=== PATIENT | female | born 1995 | race Caucasian/White ===

== ENCOUNTER → 2024-03-23 16:17 | Outpatient (REF) | payer OTHER, SELFPAY ==
[2024-03-23 15:00] LABS: % Basophils 0.4 % (0-2); % Eosinophils 1.4 % (0-6); % Immature Granulocytes 0.1 % (0-0.5); % Lymphocytes 25.5 % (20.5-51.1); % Monocytes 6.8 % (1.7-9.3); % Neutrophils 65.8 % (42.2-75.2); Absolute Eosinophils 0.1 10^3/uL (0-0.7); Absolute Lymphocytes 1.8 10^3/uL (1.2-3.4); Absolute Monocytes 0.5 10^3/uL (0.1-0.6); Absolute Neutrophils 4.6 10^3/uL (1.4-6.5); Hematocrit 27.7 % (37.0-47.0); Hemoglobin 8.6 g/dL (12.0-16.0); Mean Corpuscular Hgb 25.5 pg (27.0-31.0); Mean Corpuscular Volume 82.2 fL (81.0-99.0); Mean Platelet Volume 10.9 fL (7.4-10.4); Platelet Count 282 10^3/uL (130-400); Red Blood Cell Count 3.37 10^6/uL (4.20-5.40); Red Cell Dist. Width 14.9 % (11.5-14.5)
== END ==
LOC: OIDL 16:17
PROVIDERS: ATTENDING PHYSICIAN Internal Medicine Hematology & Oncology
DX: D50.9 Iron deficiency anemia, unspecified (principal)
CPT/HCPCS: 85025

== ENCOUNTER → 2024-03-27 15:28 | Outpatient (REF) | payer OTHER, SELFPAY ==
[2024-03-27 10:25] LABS: % Basophils 0.6 % (0-2); % Eosinophils 1.1 % (0-6); % Immature Granulocytes 0.4 % (0-0.5); % Lymphocytes 35.8 % (20.5-51.1); % Monocytes 7.8 % (1.7-9.3); % Neutrophils 54.3 % (42.2-75.2); Absolute Eosinophils 0.1 10^3/uL (0-0.7); Absolute Lymphocytes 1.9 10^3/uL (1.2-3.4); Absolute Monocytes 0.4 10^3/uL (0.1-0.6); Absolute Neutrophils 2.9 10^3/uL (1.4-6.5); Hematocrit 28.3 % (37.0-47.0); Hemoglobin 8.3 g/dL (12.0-16.0); Mean Corp Hgb Conc. 29.3 g/dL (33.0-37.0); Mean Corpuscular Hgb 24.9 pg (27.0-31.0); Mean Platelet Volume 11.5 fL (7.4-10.4); Nucleated Red Blood Cells % 0 %; Platelet Count 259 10^3/uL (130-400); Red Blood Cell Count 3.33 10^6/uL (4.20-5.40); Red Cell Dist. Width 15.5 % (11.5-14.5); White Blood Cell Count 5.3 10^3/uL (4.8-10.8)
== END ==
LOC: OIDL 15:28
PROVIDERS: ATTENDING PHYSICIAN Internal Medicine Hematology & Oncology
DX: D50.9 Iron deficiency anemia, unspecified (principal)
CPT/HCPCS: 85025

== ENCOUNTER → 2024-04-05 15:41 | Outpatient (REF) | payer OTHER, SELFPAY ==
[2024-04-05 14:24] LABS: % Basophils 0.4 % (0-2); % Eosinophils 0.4 % (0-6); % Immature Granulocytes 0.1 % (0-0.5); % Lymphocytes 22.3 % (20.5-51.1); % Monocytes 6.3 % (1.7-9.3); % Neutrophils 70.5 % (42.2-75.2); Absolute Lymphocytes 1.6 10^3/uL (1.2-3.4); Absolute Monocytes 0.5 10^3/uL (0.1-0.6); Absolute Neutrophils 5.1 10^3/uL (1.4-6.5); Hematocrit 31.3 % (37.0-47.0); Hemoglobin 9.8 g/dL (12.0-16.0); Mean Corp Hgb Conc. 31.3 g/dL (33.0-37.0); Mean Corpuscular Hgb 26.1 pg (27.0-31.0); Mean Corpuscular Volume 83.5 fL (81.0-99.0); Platelet Count 255 10^3/uL (130-400); Red Blood Cell Count 3.75 10^6/uL (4.20-5.40); White Blood Cell Count 7.3 10^3/uL (4.8-10.8)
== END ==
LOC: OIDL 15:41
PROVIDERS: ATTENDING PHYSICIAN Internal Medicine Hematology & Oncology
DX: D50.9 Iron deficiency anemia, unspecified (principal)
CPT/HCPCS: 85025

== ENCOUNTER → 2024-04-10 10:48 | Outpatient (REF) | payer OTHER, SELFPAY ==
[2024-04-10 11:01] LABS: % Basophils 0.5 % (0-2); % Eosinophils 1.1 % (0-6); % Immature Granulocytes 0.2 % (0-0.5); % Lymphocytes 32.7 % (20.5-51.1); % Monocytes 6.4 % (1.7-9.3); % Neutrophils 59.1 % (42.2-75.2); Absolute Eosinophils 0.1 10^3/uL (0-0.7); Absolute Lymphocytes 1.8 10^3/uL (1.2-3.4); Absolute Monocytes 0.4 10^3/uL (0.1-0.6); Absolute Neutrophils 3.3 10^3/uL (1.4-6.5); Hematocrit 31.5 % (37.0-47.0); Hemoglobin 9.6 g/dL (12.0-16.0); Mean Corp Hgb Conc. 30.5 g/dL (33.0-37.0); Mean Corpuscular Hgb 25.8 pg (27.0-31.0); Mean Corpuscular Volume 84.7 fL (81.0-99.0); Mean Platelet Volume 11.2 fL (7.4-10.4); Nucleated Red Blood Cells % 0 %; Platelet Count 274 10^3/uL (130-400); Red Blood Cell Count 3.72 10^6/uL (4.20-5.40); Red Cell Dist. Width 17.6 % (11.5-14.5); White Blood Cell Count 5.5 10^3/uL (4.8-10.8)
== END ==
LOC: OIDL 10:48
PROVIDERS: ATTENDING PHYSICIAN Internal Medicine Hematology & Oncology
DX: D50.9 Iron deficiency anemia, unspecified (principal); E53.9 Vitamin B deficiency, unspecified
CPT/HCPCS: 85025

== ENCOUNTER → 2024-04-17 15:45 | Outpatient (REF) | payer OTHER, SELFPAY ==
[2024-04-17 12:40] LABS: % Basophils 0.6 % (0-2); % Eosinophils 0.8 % (0-6); % Immature Granulocytes 0.2 % (0-0.5); % Lymphocytes 32.6 % (20.5-51.1); % Monocytes 6.6 % (1.7-9.3); % Neutrophils 59.2 % (42.2-75.2); Absolute Lymphocytes 1.7 10^3/uL (1.2-3.4); Absolute Monocytes 0.4 10^3/uL (0.1-0.6); Absolute Neutrophils 3.1 10^3/uL (1.4-6.5); Hematocrit 34.2 % (37.0-47.0); Hemoglobin 10.9 g/dL (12.0-16.0); Mean Corp Hgb Conc. 31.9 g/dL (33.0-37.0); Mean Corpuscular Hgb 27.7 pg (27.0-31.0); Mean Corpuscular Volume 86.8 fL (81.0-99.0); Mean Platelet Volume 11.9 fL (7.4-10.4); Nucleated Red Blood Cells % 0 %; Platelet Count 272 10^3/uL (130-400); Red Blood Cell Count 3.94 10^6/uL (4.20-5.40); Red Cell Dist. Width 18.2 % (11.5-14.5); White Blood Cell Count 5.3 10^3/uL (4.8-10.8)
== END ==
LOC: OIDL 15:45
PROVIDERS: ATTENDING PHYSICIAN Internal Medicine Hematology & Oncology
DX: D50.9 Iron deficiency anemia, unspecified (principal)
CPT/HCPCS: 85025

== ENCOUNTER → 2024-07-10 10:48 | Outpatient (REF) | payer OTHER, SELFPAY | LOC: PNTC 10:48 | PROVIDERS: ATTENDING PHYSICIAN Obstetrics & Gynecology | DX: O99.210 Obesity complicating pregnancy, unspecified trimester (principal) | CPT/HCPCS: 76805 ==

== ENCOUNTER → 2024-08-03 09:58 | Outpatient (REF) | payer OTHER, SELFPAY | LOC: PNTC 09:58 | PROVIDERS: ATTENDING PHYSICIAN Obstetrics & Gynecology | DX: O99.210 Obesity complicating pregnancy, unspecified trimester (principal) | CPT/HCPCS: 76811 ==

== ENCOUNTER → 2024-08-30 10:56 | Outpatient (REF) | payer OTHER, SELFPAY | LOC: PNTC 10:56 | PROVIDERS: ATTENDING PHYSICIAN Obstetrics & Gynecology | DX: O99.210 Obesity complicating pregnancy, unspecified trimester (principal); O09.529 Supervision of elderly multigravida, unspecified trimester | CPT/HCPCS: 76816 ==

== ENCOUNTER → 2024-09-28 10:02 | Outpatient (REF) | payer OTHER, SELFPAY | LOC: PNTC 10:02 | PROVIDERS: ATTENDING PHYSICIAN Obstetrics & Gynecology | DX: O99.210 Obesity complicating pregnancy, unspecified trimester (principal); O09.529 Supervision of elderly multigravida, unspecified trimester | CPT/HCPCS: 76816 ==

== ENCOUNTER → 2024-10-12 09:59 | Outpatient (REF) | payer OTHER, SELFPAY | LOC: PNTC 09:59 | PROVIDERS: ATTENDING PHYSICIAN Obstetrics & Gynecology | DX: Z29.13 Encounter for prophylactic Rho(D) immune globulin (principal) | CPT/HCPCS: 36415; 86850; 86900; 86901; 96372; J2790 ==

== ENCOUNTER → 2024-10-26 09:13 | Outpatient (REF) | payer OTHER, SELFPAY | LOC: PNTC 09:13 | PROVIDERS: ATTENDING PHYSICIAN Obstetrics & Gynecology | DX: O99.210 Obesity complicating pregnancy, unspecified trimester (principal); O09.529 Supervision of elderly multigravida, unspecified trimester | CPT/HCPCS: 59025; 76816 ==

== ENCOUNTER → 2024-11-01 10:01 | Outpatient (REF) | payer OTHER, SELFPAY | LOC: PNTC 10:01 | PROVIDERS: ATTENDING PHYSICIAN Obstetrics & Gynecology | DX: O99.210 Obesity complicating pregnancy, unspecified trimester (principal) | CPT/HCPCS: 59025; 76815 ==

== ENCOUNTER 2024-11-07 17:04 | Observation (INO) | payer OTHER, SELFPAY ==
[2024-11-07 17:12] VITALS: BP 127/77; BMI 48.5
[2024-11-07 18:02] LABS: % Basophils 0.2 % (0-2); % Eosinophils 0.5 % (0-6); % Immature Granulocytes 0.7 % (0-0.5); % Lymphocytes 26.1 % (20.5-51.1); % Monocytes 7.7 % (1.7-9.3); % Neutrophils 64.8 % (42.2-75.2); Absolute Immature Granulocytes 0.1 10^3/uL (0-0.05); Absolute Lymphocytes 2.1 10^3/uL (1.2-3.4); Absolute Monocytes 0.6 10^3/uL (0.1-0.6); Absolute Neutrophils 5.3 10^3/uL (1.4-6.5); Hematocrit 31.9 % (37.0-47.0); Hemoglobin 10.6 g/dL (12.0-16.0); Mean Corp Hgb Conc. 33.2 g/dL (33.0-37.0); Mean Corpuscular Hgb 31.4 pg (27.0-31.0); Mean Corpuscular Volume 94.4 fL (81.0-99.0); Mean Platelet Volume 11.1 fL (7.4-10.4); Nucleated Red Blood Cells % 0 %; Platelet Count 203 10^3/uL (130-400); Red Blood Cell Count 3.38 10^6/uL (4.20-5.40); Red Cell Dist. Width 14.2 % (11.5-14.5); White Blood Cell Count 8.2 10^3/uL (4.8-10.8)
[2024-11-07 18:15] LABS: ALT (SGPT) < 10 U/L (0-35); AST (SGOT) 13 U/L (14-36); Albumin 3.6 g/dl (3.5-5.0); Alkaline Phosphatase 132 U/L (38-126); Blood Urea Nitrogen 4 mg/dl (7-17); Calcium 8.5 mg/dl (8.4-10.2); Carbon Dioxide 24 mmol/L (22-30); Chloride 102 mmol/L (98-107); Estimated Creatinine Clearance > 125 ml/min; Glucose 101 mg/dl (70-99); Potassium 3.9 mmol/L (3.5-5.1); Sodium 134 mmol/L (135-145); Total Bilirubin 0.7 mg/dl (0.2-1.3); Total Protein 6.2 g/dl (6.3-8.2); eGFR > 60.00
[2024-11-07 18:16] LABS: Uric Acid 4.3 mg/dl (2.5-6.2)
[2024-11-07 18:26] LABS: Urine Albumin 1+ (Neg - Trace); Urine Bilirubin Negative (Negative); Urine Character Slightly Cloudy (Clear); Urine Color Yellow; Urine Glucose Negative (Negative); Urine Ketone Negative (Negative); Urine Leukocyte 1+ (Negative); Urine Nitrite Negative (Negative); Urine Occult Blood Negative (Negative); Urine Urobilinogen 1+ (Neg - 1+)
[2024-11-07 18:43] LABS: Urine Bacteria Few (Negative); Urine Red Blood Cell 0-2 /HPF (0-2); Urine Squamous Cell >30 /LPF (Few); Urine White Cell 0-2 /HPF (0-5)
[2024-11-07 18:53] LABS: Urine Protein < 5 mg/dl
[2024-11-07] MEDS: TYLENOL 650 MG PO (19:22)
== END 2024-11-07 20:33 | disposition home or self-care (01) ==
LOC: LDRP 17:04
PROVIDERS: ADMITTING PHYSICIAN Obstetrics & Gynecology
DX: O26.893 Other specified pregnancy related conditions, third trimester (principal); Z3A.33 33 weeks gestation of pregnancy; R51.9 Headache, unspecified; R19.7 Diarrhea, unspecified; Z88.0 Allergy status to penicillin
CPT/HCPCS: 80048; 80053; 81003; 81015; 82570; 84156; 84550; 85025; 86850; 86870; 86900; 86901; G0378

== ENCOUNTER 2024-11-08 11:00 | Observation (INO) | payer OTHER, SELFPAY ==
[2024-11-08 11:21] LABS: % Basophils 0.3 % (0-2); % Eosinophils 0.4 % (0-6); % Immature Granulocytes 0.4 % (0-0.5); % Lymphocytes 25.1 % (20.5-51.1); % Monocytes 5.8 % (1.7-9.3); Absolute Lymphocytes 1.8 10^3/uL (1.2-3.4); Absolute Monocytes 0.4 10^3/uL (0.1-0.6); Absolute Neutrophils 4.9 10^3/uL (1.4-6.5); Hematocrit 30.2 % (37.0-47.0); Hemoglobin 10.3 g/dL (12.0-16.0); Mean Corp Hgb Conc. 34.1 g/dL (33.0-37.0); Mean Corpuscular Hgb 32.2 pg (27.0-31.0); Mean Corpuscular Volume 94.4 fL (81.0-99.0); Mean Platelet Volume 11.2 fL (7.4-10.4); Nucleated Red Blood Cells % 0 %; Platelet Count 183 10^3/uL (130-400); Red Cell Dist. Width 14.2 % (11.5-14.5); White Blood Cell Count 7.2 10^3/uL (4.8-10.8)
[2024-11-08 11:27] VITALS: BP 150/59; BMI 48.0
[2024-11-08 11:54] LABS: ALT (SGPT) 11 U/L (0-35); AST (SGOT) 13 U/L (14-36); Albumin 3.4 g/dl (3.5-5.0); Alkaline Phosphatase 132 U/L (38-126); Blood Urea Nitrogen 4 mg/dl (7-17); Calcium 8.7 mg/dl (8.4-10.2); Carbon Dioxide 21 mmol/L (22-30); Chloride 104 mmol/L (98-107); Estimated Creatinine Clearance > 125 ml/min; Glucose 130 mg/dl (70-99); Potassium 3.5 mmol/L (3.5-5.1); Sodium 134 mmol/L (135-145); Total Bilirubin 0.7 mg/dl (0.2-1.3); eGFR > 60.00
[2024-11-08 12:30] LABS: Urine Protein < 5 mg/dl
[2024-11-08] MEDS: TYLENOL 1000 MG PO (13:13)
[2024-11-08] MEDS: BENADRYL 25 MG IV (14:55)
[2024-11-08] MEDS: LR 1000 IV (14:55)
[2024-11-08] MEDS: REGLAN 10 MG IV (14:57)
== END 2024-11-08 17:36 | disposition home or self-care (01) ==
LOC: LDRP 11:00
PROVIDERS: ADMITTING PHYSICIAN Student in an Organized Health Care Education/Training Program; ATTENDING PHYSICIAN Obstetrics & Gynecology
DX: O13.3 Gestational [pregnancy-induced] hypertension without significant proteinuria, third trimester (principal); R51.9 Headache, unspecified; Z3A.34 34 weeks gestation of pregnancy; O99.013 Anemia complicating pregnancy, third trimester; D64.9 Anemia, unspecified; O99.213 Obesity complicating pregnancy, third trimester; Z88.0 Allergy status to penicillin
CPT/HCPCS: 59025; 76815; 80053; 82570; 84156; 85025; G0378

== ENCOUNTER 2024-11-14 11:44 | Observation (INO) | payer OTHER, SELFPAY ==
[2024-11-14 12:26] LABS: % Basophils 0.3 % (0-2); % Eosinophils 0.4 % (0-6); % Immature Granulocytes 0.6 % (0-0.5); % Lymphocytes 23.9 % (20.5-51.1); % Monocytes 6.7 % (1.7-9.3); % Neutrophils 68.1 % (42.2-75.2); Absolute Lymphocytes 1.7 10^3/uL (1.2-3.4); Absolute Monocytes 0.5 10^3/uL (0.1-0.6); Absolute Neutrophils 4.7 10^3/uL (1.4-6.5); Hematocrit 30.1 % (37.0-47.0); Mean Corp Hgb Conc. 33.2 g/dL (33.0-37.0); Mean Corpuscular Hgb 31.4 pg (27.0-31.0); Mean Corpuscular Volume 94.7 fL (81.0-99.0); Mean Platelet Volume 11.2 fL (7.4-10.4); Nucleated Red Blood Cells % 0 %; Platelet Count 192 10^3/uL (130-400); Red Blood Cell Count 3.18 10^6/uL (4.20-5.40); White Blood Cell Count 6.9 10^3/uL (4.8-10.8)
[2024-11-14 12:32] VITALS: BP 127/72; BMI 48.0
[2024-11-14 12:47] LABS: ALT (SGPT) < 10 U/L (0-35); AST (SGOT) 13 U/L (14-36); Albumin 3.1 g/dl (3.5-5.0); Alkaline Phosphatase 122 U/L (38-126); Blood Urea Nitrogen 5 mg/dl (7-17); Calcium 8.5 mg/dl (8.4-10.2); Carbon Dioxide 22 mmol/L (22-30); Chloride 105 mmol/L (98-107); Estimated Creatinine Clearance > 125 ml/min; Glucose 125 mg/dl (70-99); Potassium 3.4 mmol/L (3.5-5.1); Sodium 134 mmol/L (135-145); Total Bilirubin 0.5 mg/dl (0.2-1.3); Total Protein 5.8 g/dl (6.3-8.2); eGFR > 60.00
[2024-11-14 12:59] LABS: Urine Albumin Negative (Neg - Trace); Urine Bilirubin Negative (Negative); Urine Character Clear (Clear); Urine Color Yellow; Urine Glucose Negative (Negative); Urine Ketone Negative (Negative); Urine Leukocyte Negative (Negative); Urine Nitrite Negative (Negative); Urine Occult Blood Negative (Negative); Urine Urobilinogen Negative (Neg - 1+); Urine pH 6.5 (5.0-9.0)
[2024-11-14] MEDS: TYLENOL 1000 MG PO (13:57)
[2024-11-14 14:29] LABS: Protein/creatinine Ratio 0.2; Urine Protein 9 mg/dl
[2024-11-14] MEDS: LR 1000 IV (16:15)
[2024-11-14] MEDS: BENADRYL 25 MG IV (16:17)
[2024-11-14] MEDS: REGLAN 10 MG IV (16:18)
== END 2024-11-14 20:15 | disposition home or self-care (01) ==
LOC: LDRP 11:44
PROVIDERS: ADMITTING PHYSICIAN Student in an Organized Health Care Education/Training Program
DX: O13.3 Gestational [pregnancy-induced] hypertension without significant proteinuria, third trimester (principal); O99.213 Obesity complicating pregnancy, third trimester; O99.013 Anemia complicating pregnancy, third trimester; Z3A.34 34 weeks gestation of pregnancy; O26.893 Other specified pregnancy related conditions, third trimester; Z67.11 Type A blood, Rh negative
CPT/HCPCS: 76815; 80053; 81003; 82570; 84156; 85025; G0378

== ENCOUNTER 2024-11-20 11:27 | Observation (INO) | payer OTHER, SELFPAY ==
[2024-11-20 11:54] LABS: % Basophils 0.3 % (0-2); % Eosinophils 0.4 % (0-6); % Immature Granulocytes 0.4 % (0-0.5); % Lymphocytes 23.5 % (20.5-51.1); % Monocytes 6.7 % (1.7-9.3); % Neutrophils 68.7 % (42.2-75.2); Absolute Lymphocytes 1.7 10^3/uL (1.2-3.4); Absolute Monocytes 0.5 10^3/uL (0.1-0.6); Absolute Neutrophils 4.9 10^3/uL (1.4-6.5); Hemoglobin 10.5 g/dL (12.0-16.0); Mean Corp Hgb Conc. 33.9 g/dL (33.0-37.0); Mean Corpuscular Hgb 32.2 pg (27.0-31.0); Mean Corpuscular Volume 95.1 fL (81.0-99.0); Mean Platelet Volume 11.3 fL (7.4-10.4); Nucleated Red Blood Cells % 0 %; Platelet Count 196 10^3/uL (130-400); Red Blood Cell Count 3.26 10^6/uL (4.20-5.40); Red Cell Dist. Width 14.1 % (11.5-14.5); White Blood Cell Count 7.2 10^3/uL (4.8-10.8)
[2024-11-20 11:55] VITALS: BP 138/83; BMI 48.0
[2024-11-20 12:10] LABS: ALT (SGPT) < 10 U/L (0-35); AST (SGOT) 12 U/L (14-36); Albumin 3.1 g/dl (3.5-5.0); Alkaline Phosphatase 142 U/L (38-126); Blood Urea Nitrogen 5 mg/dl (7-17); Calcium 8.6 mg/dl (8.4-10.2); Carbon Dioxide 25 mmol/L (22-30); Chloride 104 mmol/L (98-107); Estimated Creatinine Clearance > 125 ml/min; Glucose 106 mg/dl (70-99); Potassium 3.8 mmol/L (3.5-5.1); Sodium 134 mmol/L (135-145); Total Bilirubin 0.6 mg/dl (0.2-1.3); Total Protein 5.8 g/dl (6.3-8.2); eGFR > 60.00
[2024-11-20 13:08] LABS: Urine Protein < 5 mg/dl
[2024-11-20] MEDS: TYLENOL #3 1 TABLET PO (13:57)
== END 2024-11-20 16:10 | disposition home or self-care (01) ==
LOC: PNTC-IN 11:27
PROVIDERS: ADMITTING PHYSICIAN Obstetrics & Gynecology
DX: O26.893 Other specified pregnancy related conditions, third trimester (principal); R51.9 Headache, unspecified; Z3A.35 35 weeks gestation of pregnancy; Z88.0 Allergy status to penicillin
CPT/HCPCS: 80053; 82570; 84156; 85025; G0378

== ENCOUNTER → 2024-11-22 09:33 | Outpatient (REF) | payer OTHER, SELFPAY | LOC: PNTC 09:33 | PROVIDERS: ATTENDING PHYSICIAN Obstetrics & Gynecology | DX: O99.210 Obesity complicating pregnancy, unspecified trimester (principal) | CPT/HCPCS: 59025; 76816 ==

== ENCOUNTER 2024-11-29 05:19 | Inpatient (IN) | payer OTHER, SELFPAY ==
[2024-11-29 05:26] VITALS: BMI 48.0
[2024-11-29 06:00] VITALS: BP 111/75
[2024-11-29] MEDS: LR 1000 IV ×3 (06:43→22:22)
[2024-11-29 06:48] LABS: Hematocrit 30.5 % (37.0-47.0); Hemoglobin 10.2 g/dL (12.0-16.0); Mean Corp Hgb Conc. 33.4 g/dL (33.0-37.0); Mean Corpuscular Hgb 31.7 pg (27.0-31.0); Mean Corpuscular Volume 94.7 fL (81.0-99.0); Platelet Count 169 10^3/uL (130-400); Red Blood Cell Count 3.22 10^6/uL (4.20-5.40); Red Cell Dist. Width 14.1 % (11.5-14.5); White Blood Cell Count 7.7 10^3/uL (4.8-10.8)
[2024-11-29 07:12] LABS: Urine Albumin 1+ (Neg - Trace); Urine Bilirubin Negative (Negative); Urine Character Clear (Clear); Urine Color Yellow; Urine Glucose Negative (Negative); Urine Ketone Negative (Negative); Urine Leukocyte 1+ (Negative); Urine Nitrite Negative (Negative); Urine Occult Blood Negative (Negative); Urine Specific Gravity 1.025 (<1.030); Urine Urobilinogen Negative (Neg - 1+)
[2024-11-29 07:19] LABS: ALT (SGPT) < 10 U/L (0-35); AST (SGOT) 12 U/L (14-36); Albumin 3.1 g/dl (3.5-5.0); Alkaline Phosphatase 142 U/L (38-126); Blood Urea Nitrogen 4 mg/dl (7-17); Calcium 8.7 mg/dl (8.4-10.2); Carbon Dioxide 21 mmol/L (22-30); Chloride 106 mmol/L (98-107); Estimated Creatinine Clearance > 125 ml/min; Glucose 88 mg/dl (70-99); Potassium 3.6 mmol/L (3.5-5.1); Sodium 135 mmol/L (135-145); Total Bilirubin 0.6 mg/dl (0.2-1.3); Total Protein 5.8 g/dl (6.3-8.2); eGFR > 60.00
[2024-11-29] MEDS: TYLENOL 1000 MG PO ×2 (07:36→22:50)
[2024-11-29] MEDS: BICITRA 30 ML PO (07:36)
[2024-11-29] MEDS: BRETHINE 250 MCG SC (07:44)
[2024-11-29 08:27] LABS: Urine Squamous Cell >30 /LPF (Few)
[2024-11-29 08:31] LABS: Urine Bacteria Moderate (Negative); Urine Red Blood Cell None Seen /HPF (0-2); Urine Yeast Few (Negative)
[2024-11-29 10:02] LABS: Urine Protein 6 mg/dl
[2024-11-29] MEDS: CYTOTEC 50 MICROGRAM PO ×2 (10:43→15:13)
[2024-11-29] MEDS: PITOCIN 30 UNITS/NSS 500 ML IV (22:43)
[2024-11-30] MEDS: FENTANYL/BUPIVACAINE 100 EPIDURAL (01:17)
[2024-11-30] MEDS: ANCEF 15 MG IV (03:38)
[2024-11-30] MEDS: BICITRA 30 ML PO (03:39)
[2024-11-30 04:32] LABS: Cord ABG Comment CORD BLOOD
[2024-11-30 04:32] LABS: Cord ABG Comment CORD BLOOD
[2024-11-30 04:34] LABS: B.E. Cord ABG -0.3 mMOL/L; HCO3 Cord ABG 27.2 mmol/L; O2 Saturation % Cord ABG 36.4 %; PCO2 Cord ABG 54 mmHg; PO2 Cord ABG 17 mmHg; pH Cord ABG 7.31
[2024-11-30 04:36] LABS: B.E. Cord ABG -1.3 mMOL/L; HCO3 Cord ABG 27.1 mmol/L; O2 Saturation % Cord ABG 22.3 %; PCO2 Cord ABG 59 mmHg; PO2 Cord ABG 13 mmHg; pH Cord ABG 7.27
[2024-11-30] MEDS: MORPHINE SULFATE 2 MG IV (05:41)
[2024-11-30] MEDS: TORADOL 15 MG IV ×3 (11:08→23:19)
[2024-11-30] MEDS: TYLENOL 650 MG PO (20:18)
[2024-12-01] MEDS: TORADOL 15 MG IV (05:07)
[2024-12-01 05:18] LABS: Hematocrit 23.5 % (37.0-47.0); Hemoglobin 7.8 g/dL (12.0-16.0); Mean Corp Hgb Conc. 33.2 g/dL (33.0-37.0); Mean Corpuscular Hgb 31.8 pg (27.0-31.0); Mean Corpuscular Volume 95.9 fL (81.0-99.0); Platelet Count 155 10^3/uL (130-400); Red Blood Cell Count 2.45 10^6/uL (4.20-5.40); Red Cell Dist. Width 14.3 % (11.5-14.5)
--- NOTE | 2024-12-01 07:32 | W.PN.ANS.POP ---
Anesthesia Post Operative
- Anesthesia Post Op Note
Vital Signs Stable-See Nursing Note: Yes
Airway Patent: Yes
Adequate Pain Control: Yes
Change in Mental Status: No
Current Postoperative Nausea & Vomiting: No
Anesthesia Complications: No
General Anesthetic Recall: No
Unplanned Admission: No
Post Op Hydration Adequate: Yes
[2024-12-01] MEDS: PRENATAL PLUS 1 TABLET PO (07:44)
[2024-12-01] MEDS: TYLENOL 650 MG PO ×3 (08:00→20:13)
[2024-12-01 12:55] LABS: Syphilis/T. pallidum Ab Reflex Negative (Negative)
[2024-12-01] MEDS: MOTRIN 600 MG PO ×2 (13:10→20:12)
[2024-12-01] MEDS: TORADOL IV (13:42)
[2024-12-02] MEDS: MOTRIN 600 MG PO ×2 (04:43→11:23)
[2024-12-02] MEDS: TYLENOL 650 MG PO ×2 (04:44→11:22)
[2024-12-02] MEDS: PRENATAL PLUS 1 TABLET PO (07:32)
[2024-12-02] MEDS: PRENATAL PLUS PO (07:48)
[2024-12-02] MEDS: FEOSOL 325 MG PO (09:08)
[2024-12-02] MEDS: SENOKOT-S 1 TABLET PO (09:08)
[2024-12-02] MEDS: M-M-R II 0.5 ML SC (16:24)
--- NOTE | 2024-12-02 16:48 | W.DS.TRANS ---
DC Summary - Civil Engineer'S Aide
-
Discharge Instructions:
Discharge Diagnosis/Procedures Gestational HTN, 37w1d delivered;
External cephalic version, cervical ripening,
induction of labor with pitocin, nonreassuring
FHT, multiparity -requesting sterilization,
Primary LTCS right salpingectomy, anemia
Diet Regular
Activity No strenuous activity
Driving Restrictions No driving for 2 weeks
Bathing Restrictions OK to Shower
Instructions:
Stand-Alone Forms: LDRP Delivery
LDRP Hypertensive Disorders
Changes to Home Medications: No
Discharge Medications:
DC Medications w/original date entered in [facility]
vits 96-ferrous fumarate 27 mg iron-folic acid 800 mcg tablet 1 ea PO DAILY Supplement 05/27/21
acetaminophen 325 mg tablet 650 mg (2 x 325 mg) PO Q4HPRN PRN mild pain #0 tabs 11/30/24
ibuprofen 600 mg tablet 600 mg PO Q6HPRN PRN cramps #30 tabs 11/30/24
ferrous sulfate 325 mg (65 mg iron) tablet (FeroSul) 325 mg PO DAILY #0 tabs 12/02/24
Home Medication Changes
Pending Results: Yes
Additional Pending Results:
pathology on fallopian tube and placenta
Total time spent discharging patient (in min): 20
== END 2024-12-02 17:03 | disposition home or self-care (01) | DRG 785 ==
LOC: LDRP 05:19
PROVIDERS: Obstetrics & Gynecology; ADMITTING PHYSICIAN Obstetrics & Gynecology
PROC: 3E0P7VZ Introduction of Hormone into Female Reproductive, Via Natural or Artificial Opening (ICD-10-PCS; 2024-11-29)
PROC: 10S0XZZ Reposition Products of Conception, External Approach (ICD-10-PCS; 2024-11-29)
PROC: 3E0234Z Introduction of Serum, Toxoid and Vaccine into Muscle, Percutaneous Approach (ICD-10-PCS; 2024-11-30)
PROC: 3E033VJ Introduction of Other Hormone into Peripheral Vein, Percutaneous Approach (ICD-10-PCS; 2024-11-30)
PROC: 0UT70ZZ Resection of Bilateral Fallopian Tubes, Open Approach (ICD-10-PCS; 2024-11-30)
PROC: 10D00Z1 Extraction of Products of Conception, Low, Open Approach (ICD-10-PCS; 2024-11-30)
DX: O32.1XX0 Maternal care for breech presentation, not applicable or unspecified (principal); O13.4 Gestational [pregnancy-induced] hypertension without significant proteinuria, complicating childbirth; Z3A.37 37 weeks gestation of pregnancy; Z37.0 Single live birth; O76 Abnormality in fetal heart rate and rhythm complicating labor and delivery; O69.0XX0 Labor and delivery complicated by prolapse of cord, not applicable or unspecified; Z30.2 Encounter for sterilization; E66.813 Obesity, class 3; O99.214 Obesity complicating childbirth; D50.0 Iron deficiency anemia secondary to blood loss (chronic); O99.02 Anemia complicating childbirth; Z23 Encounter for immunization
CPT/HCPCS: 88302; 88307; 58605; 80053; 81003; 81015; 82570; 82803; 84156; 85027; 86780; 86850; 86900; 86901; 90707

== ENCOUNTER 2024-12-21 12:33 | Emergency (ER) | payer OTHER, SELFPAY ==
[2024-12-21 12:33] VITALS: BMI 45.7
[2024-12-21 12:38] VITALS: BP 154/88
[2024-12-21 13:21] LABS: % Basophils 0.3 % (0-2); % Eosinophils 1.3 % (0-6); % Immature Granulocytes 0.3 % (0-0.5); % Lymphocytes 30.8 % (20.5-51.1); % Monocytes 7.1 % (1.7-9.3); % Neutrophils 60.2 % (42.2-75.2); Absolute Eosinophils 0.1 10^3/uL (0-0.7); Absolute Lymphocytes 2.1 10^3/uL (1.2-3.4); Absolute Monocytes 0.5 10^3/uL (0.1-0.6); Absolute Neutrophils 4.1 10^3/uL (1.4-6.5); Hematocrit 30.7 % (37.0-47.0); Hemoglobin 9.8 g/dL (12.0-16.0); Mean Corp Hgb Conc. 31.9 g/dL (33.0-37.0); Mean Corpuscular Hgb 29.4 pg (27.0-31.0); Mean Corpuscular Volume 92.2 fL (81.0-99.0); Mean Platelet Volume 10.4 fL (7.4-10.4); Nucleated Red Blood Cells % 0 %; Platelet Count 283 10^3/uL (130-400); Red Blood Cell Count 3.33 10^6/uL (4.20-5.40); Red Cell Dist. Width 13.4 % (11.5-14.5); White Blood Cell Count 6.9 10^3/uL (4.8-10.8)
[2024-12-21 13:37] LABS: ALT (SGPT) 19 U/L (0-35); AST (SGOT) 19 U/L (14-36); Alkaline Phosphatase 102 U/L (38-126); Blood Urea Nitrogen 8 mg/dl (7-17); Carbon Dioxide 28 mmol/L (22-30); Chloride 103 mmol/L (98-107); Estimated Creatinine Clearance > 125 ml/min; Glucose 99 mg/dl (70-99); Potassium 3.8 mmol/L (3.5-5.1); Sodium 137 mmol/L (135-145); Total Bilirubin 0.7 mg/dl (0.2-1.3); Total Protein 6.4 g/dl (6.3-8.2); eGFR > 60.00
[2024-12-21 13:59] LABS: Albumin 3.6 g/dl (3.5-5.0)
--- NOTE | 2024-12-21 14:09 | ED.GENMED ---
History of Present Illness
General
Chief Complaint: Skin Problem
Source: patient
Exam Limitations: none
Time Seen by Provider: 12/21/24 12:46
Nursing documentation reviewed up to this point in time: agreed with
History of Present Illness
History of Present Illness:
Patient is a 29-year-old currently 3 weeks postop from presenting with expaning redness and warmth surrounding incision. Patient sent by OBGYN office with concern of infected incisional site.
Patient was initially treated with topical clotrimazole after 2-week postop appointment for concern of possible fungal infection. She had no improvement in symptoms after clotrimazole, if not mild worsening. She notes expanding redness and warmth
around incision with mild tenderness. Patient states she did feel somewhat chilly yesterday although denies any known fevers. Patient denies any significant abdominal pain, nausea, vomiting. There has not been any drainage from surgical site.
Patient is not breast-feeding.
Patient does report childhood allergy to penicillin although he thinks it was just a GI reaction
Past History
Past History
ED Past Medical History: None and Other
ED Past Surgical History: None, Cholecystectomy and Gynecological
Social History
Tobacco: Non-smoker
Alcohol: None
Drug: None
Personal: Single
Living: with family
Employment: Employed
Family History
Family History: Other
Review of Systems
Review of Systems
Allergies reviewed?: Yes
All Other Systems: ROS reviewed and negative except as documented in HPI and ROS
Phy Exam
Physical Exam
Physical Exam:
Vitals: Hypertensive, otherwise vital signs stable. Afebrile
General: Patient is well appearing, no acute distress. Nontoxic appearing
Skin: Healing low abdominal incision C/D/I with surrounding erythema and warmth with mild tenderness. No red streaking or purulent drainage.
Head: Normocephalic, atraumatic
Eyes: Sclera nonicteric. EOMs intact. No nystagmus.
Throat: Protecting airway
Neck: Normal ROM, no cervical spine tenderness, no meningismus
Cardiac: Regular rate and rhythm, no murmurs.
Pulm: Normal respiratory effort, no wheezes, rales, rhonchi heard on exam.
Abdomen: Abdomen soft and nontender. No rebound tenderness or guarding. Cellulitis of incision as above.
Extremities: No evidence of cyanosis or edema. Palpable DP pulses bilateral
Neuro: AAOx3. Grossly intact.
Psychiatric: Normal affect.
Course
Orders/Labs/Results
Orders:
Orders
12/21/24 13:04
CT Abd/pelvis W Iv Cont Urgent
Comment: 3 weeks post-op
Reason For Exam: Cellulitis of scar
12/21/24 13:08
Complete Blood Count/With Diff Urgent
Comprehensive Metabolic Panel Urgent
12/21/24 15:15
Consult PROJECT SUPERINTENDENT [PROJECT SUPERINTENDENT CONSULT] Urgent
Consulting Provider: Ana Candelario
Was physician already notified: Yes
12/21/24 15:48
Cephalexin Monohydrate [Keflex] 500 mg PO NOW STA
Abnormal Lab Results
12/21/24
13:08
RBC 3.33 L 10^6/uL
(4.20-5.40)
Hgb 9.8 L g/dL
(12.0-16.0)
Hct 30.7 L %
(37.0-47.0)
MCHC 31.9 L g/dL
(33.0-37.0)
12/21/24 13:08
12/21/24 13:08
Vital Signs
Initial and Last Documented VS:
Initial Vital Signs
Temp Pulse Resp BP Pulse Ox
98.4 F 82 18 154/88 98
12/21/24 12:38 12/21/24 12:38 12/21/24 12:38 12/21/24 12:38 12/21/24 12:38
Last Documented Vital Signs
Temp Pulse Resp BP Pulse Ox
98.4 F 84 16 122/67 100
12/21/24 12:38 12/21/24 14:17 12/21/24 14:17 12/21/24 14:17 12/21/24 14:17
MDM/Problems Addressed
Differential Diagnosis Includes:
Not limited to: Postop complication, cellulitis, intra-abdominal abscess, wound dehiscence, etc.
MDM/Problems Addressed:
29 year old female currently 3 weeks post-op from section presenting with cellulitis of surgical incision. No associated fevers, abdominal pain or vomiting. Patient is afebrile on arrival with stable vital signs. Physical exam as above.
Patient extremely well appearing and nontoxic. Transverse low abdominal incision C/D/I with surrounding erythema and warmth consistent with likely cellulitis. No evidence of wound dehiscence or drainage from incision. Otherwise abdomen soft and
nontender, not an acute abdomen. Labs and CT abdomen/pelvis w/ IV contrast were ordered. Given post-operative complication, OBGYN was consulted for evaluation.
Update: Labs reviewed. No leukocytosis. Anemia noted although is trending up. Chemistry unremarkable. Patient does not meet sepsis criteria. CT report reviewed which shows suspected post-operative appearance without focal collection or findings of
acute intra-abdominal infection. Overall impression is likely cellulitis of surgical wound. Dispo pending OBGYN consult.
Update: Dr. Kodak ALEJANDRE down to evaluate patient at bedside. After review of imaging and discussion with patient- she feels patient stable for discharge home with PO abx for cellultis. I feel this is a very reasonable decision as patient is extremely
well appearing and not septic. Patient given first dose of keflex in ED and remainder of prescription will be sent by OBGYN. Childhod PCN allergy noted although patient has tolerated amox recently without difficulty Very strict return precautions
discussed with patient. She will continue to f/u with OBGYN as outpatient to ensure resolving.
Chronic conditions affecting care:
N/A
Acute Exacerbation and/or Progression of Chronic Illness:
N/A
*Radiology
Radiology exam reviewed: radiology read reviewed
*Pulse Oximetry
Patient hypoxic: no
*EKG
Interpreted by ED Provider?: NA
*Ground Hand Interpretation
Rate: Ground Hand- N/A
*Critical Care Note
Total Time (30-74mins, 75-104mins- exclusive of procedures): Not Applicable
Patient Management
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
ED Attending Note
-
Portions of this chart may have been created with voice recognition software.� Occasional wrong word or��sound alike� substitutions may have occurred due to the inherent limitations of voice recognition software.
Discharge Plan
Departure
Patient Disposition: Home (Routine Discharge)
Date of Disposition: 12/21/24
Time of Disposition: 15:53
Patient with high blood pressure during this ER visit?: No
Condition: Good
Covid-19: Not Applicable
Discharge Problem:
Postoperative cellulitis of surgical wound
Instructions: Cellulitis (Skin Infection), Adult (DC)
Prescriptions:
No Action
[id number]-[id number] fum-folic 1 EACH tablet
1 ea PO DAILY
clotrimazole 1 % cream
1 applic TOPICAL BID
Referrals:
Cherry Hurtado DO [Active] - Follow up in 5-7 days
Vic Paris MD [Family Provider] -
Activity Restrictions/Additional Instructions:
Return to the emergency department with any fevers, chills, worsening abdominal pain, intractable nausea/vomiting, significant worsening of redness/tenderness surrounding incision, drainage from surgical incision, worsening current symptoms, or any
other concerns
-A prescription for cephalexin will be sent to your pharmacy by Dr. Candelario. You were given your first dose in the emergency department. It is important to complete prescription as prescribed by PROJECT SUPERINTENDENT�instructions will be on prescription label
-Stay well-hydrated. Take Tylenol as needed for any pain.
-Follow-up with PROJECT SUPERINTENDENT, Dr. Hurtado within the week for further evaluation/management and to ensure that symptoms are improving
Monitor your symptoms closely and return to the emergency department with any acute worsening/new symptoms or any other concerns
Interventions
Interventions:
*Risk Screen - Suicide Last Done: 12/21/24 12:38
*General Assessment Last Done: 12/21/24 12:38
*Neglect/Abuse Screening Last Done: 12/21/24 12:38
*ED- Fall Risk Assessment Last Done: 12/21/24 12:44
*Nursing Disposition Last Done: 12/21/24 15:56
ED-Skin Assessment Last Done: 12/21/24 12:44
Discharge Date and Time
Discharge Date/Time: 12/21/24 15:56
Print Language: [place]
[2024-12-21 14:17] VITALS: BP 122/67
[2024-12-21] MEDS: KEFLEX 500 MG PO (15:55)
== END 2024-12-21 15:56 | disposition home or self-care (01) ==
LOC: EMR 12:33
PROVIDERS: Physician Assistant; CONSULT PHYSICIAN Obstetrics & Gynecology; EMERGENCY PHYSICIAN Emergency Medicine; FAMILY PHYSICIAN Internal Medicine
DX: O86.00 Infection of obstetric surgical wound, unspecified (principal); L03.311 Cellulitis of abdominal wall; Z90.49 Acquired absence of other specified parts of digestive tract
CPT/HCPCS: 99284; 74177; 80053; 85025; Q9967